=== PATIENT | male | born 1990 ===

== ENCOUNTER → 2021-07-23 13:46 | Outpatient (ROUT) | payer OTHER, SELFPAY ==
[2021-07-23 14:37] LABS: COVID19 -Nasal RAPID Negative (Negative)
== END ==
PROVIDERS: Visit Provider Physician Assistant
DX: Z20.822 Contact with and (suspected) exposure to COVID-19 (principal)
CPT/HCPCS: 87635

== ENCOUNTER → 2021-12-04 13:11 | Outpatient (ROUT) | payer OTHER, SELFPAY ==
[2021-12-04 13:33] LABS: COVID19 -Nasal RAPID Negative (Negative)
== END ==
PROVIDERS: Visit Provider Physician Assistant
DX: Z20.822 Contact with and (suspected) exposure to COVID-19 (principal)
CPT/HCPCS: 87635